=== PATIENT | male | born 1945 ===

== ENCOUNTER 2016-04-09 14:09 | Outpatient (CLI) | payer MEDICARE ==
--- NOTE | 2016-04-10 08:28 | XRay Report ---
CHEST TWO VIEWS: 04/09/16 14:09:00 CLINICAL: Cough. COMPARISON: The FINDINGS: Normal heart and pulmonary vasculature.Aortic tortuosity. The lungs are normally expanded and clear.The bones and soft tissues are unremarkable. IMPRESSION: No acute cardiopulmonary process.
== END 2016-04-09 14:10 | disposition home or self-care (01) ==
LOC: SPVIMAG 14:09
PROVIDERS: ATTEND Internal Medicine
DX: J40 Bronchitis, not specified as acute or chronic (principal)
CPT/HCPCS: 71020